=== PATIENT | male | born 1985 | race Caucasian/White ===

== ENCOUNTER 2016-07-02 11:09 | Inpatient (IN) | payer OTHER ==
[~2016-07-02] VITALS: Ht 170.2 cm; Wt 48.4 kg
[~2016-07-02 11:09] MED LIST: NORCO 5/3251 TABLET PO; SUBOXONE 8 M1 TABLET SL; TEGRETOL-XR,CA400 MG PO; ZANTAC150 MG PO; ZANTAC300 MG PO; ZOFRAN4 MG PO
[2016-07-02 12:09] LABS: HEMATOCRIT 57.7 % (38.0-50.0); MCH 28.7 PG (29.0-34.0); MCHC 33.3 G/DL (30.0-36.0); MCV 86.1 FL (86-99); MEAN PLAT.VOLUME 8.6 uM^3 (9.0-12.4); NRBC (%) 0.1 /100 WBC (0-0); PLATELET COUNT 280 K/uL (156-360); RBC DIS.WIDTH-CV 16.6 % (11.8-14.6); RBC DIS.WIDTH-SD 48.4 % (39-53); WHITE BLOOD COUNT 18.2 K/uL (4.1-10.2)
[2016-07-02 12:20] LABS: CHLORIDE 102 mEq/L (99-109); POTASSIUM 2.6 mEq/L (3.7-5.4); SODIUM 142 mEq/L (136-147)
[2016-07-02 12:22] LABS: GLUCOSE 155 mg/dL (70-99)
[2016-07-02 12:23] LABS: ANION GAP 18 MEQ/L (2-14)
[2016-07-02 12:24] LABS: TOTAL BILIRUBIN 0.6 mg/dL (0.0-1.0)
[2016-07-02 12:25] LABS: SERUM ETHYL ALCOHOL 152 mg/dL
[2016-07-02 12:26] LABS: ALKALINE PHOSPHATASE 101 IU/L (3-129); GFR ESTIMATE (CALCULATED) > 59 mL/min/
[2016-07-02 12:27] LABS: DIRECT BILIRUBIN 0.3 mg/dL (0.0-0.3); UREA NITROGEN (BUN) 3 mg/dL (9-23)
[2016-07-02 12:29] LABS: LIPASE 628 U/L (1.0-51.0)
[2016-07-02 13:26] LABS: MAGNESIUM 1.5 mg/dL (1.3-2.7)
[2016-07-02 14:31] VITALS: BP 184/98
[2016-07-02] MEDS ORDERED: GABAPENTIN300 MG PO (16:36)
[2016-07-02] MEDS ORDERED: VITAMIN B122500 MCG PO (18:31)
[2016-07-02 22:34] VITALS: BP 158/88
[2016-07-03 07:03] LABS: HEMATOCRIT 55.8 % (38.0-50.0); MCH 28.2 PG (29.0-34.0); MCHC 33.2 G/DL (30.0-36.0); MCV 85.1 FL (86-99); RBC DIS.WIDTH-CV 17.1 % (11.8-14.6); RBC DIS.WIDTH-SD 48.1 % (39-53); RED BLOOD COUNT 6.56 M/uL (4.00-5.50); WHITE BLOOD COUNT 17.6 K/uL (4.1-10.2)
[2016-07-03 07:07] LABS: ANION GAP 9 MEQ/L (2-14); CHLORIDE 98 MEQ/L (99-109); GFR ESTIMATE (CALCULATED) > 59 mL/min/; GLUCOSE 130 mg/dL (70-99); SAMPLE HEMOLYSIS CHECK 1; SAMPLE ICTERIC CHECK 0; SAMPLE LIPEMIA CHECK 0; UREA NITROGEN (BUN) 3 mg/dL (9-23)
[2016-07-03 07:13] LABS: POTASSIUM 3.8 MEQ/L (3.7-5.4); SODIUM 133 MEQ/L (136-147)
[2016-07-03 07:21] VITALS: BP 150/96
[2016-07-03 07:28] LABS: MEAN PLAT.VOLUME 8.6 uM^3 (9.0-12.4); PLAT.SUFFICIENCY ADEQUATE; PLATELET COUNT 170 K/uL (156-360)
[2016-07-03 11:15] VITALS: BP 174/108
[2016-07-03 16:09] VITALS: BP 144/76
[2016-07-03 19:08] VITALS: BP 169/89
[2016-07-03 23:15] VITALS: BP 144/67
[2016-07-04 07:24] VITALS: BP 161/101
[2016-07-04 12:48] VITALS: BP 160/95
[2016-07-04 16:18] VITALS: BP 167/92
[2016-07-04 17:35] VITALS: BP 148/88
[2016-07-04 19:28] VITALS: BP 155/93
[2016-07-04 22:58] VITALS: BP 164/95
[2016-07-05 02:00] VITALS: BP 156/85
[2016-07-05 03:45] VITALS: BP 134/85
[2016-07-05 06:26] LABS: EOSINOPHIL (%) 0 % (0-5); HEMATOCRIT 47.2 % (38.0-50.0); IMMATURE GRANULOCYTE (%) 0.6 % (0.0-0.7); IMMATURE GRANULOCYTE COUNT 0.1 K/uL; INSTRUMENT ABS NEUTROPHIL CT 10.4 K/uL; LYMPHOCYTE COUNT 1.2 K/uL (1.0-2.8); MCH 28.4 PG (29.0-34.0); MCHC 33.9 G/DL (30.0-36.0); MCV 83.8 FL (86-99); MONOCYTE (%) 8.9 % (3-12); MONOCYTE COUNT 1.2 K/uL (0-0.8); NEUTROPHIL COUNT 10.4 K/uL (1.8-6.4); RBC DIS.WIDTH-CV 15.5 % (11.8-14.6); RBC DIS.WIDTH-SD 46.5 % (39-53); RED BLOOD COUNT 5.63 M/uL (4.00-5.50); WHITE BLOOD COUNT 12.9 K/uL (4.1-10.2)
[2016-07-05 06:42] LABS: ALKALINE PHOSPHATASE 71 IU/L (3-129); ANION GAP 10 MEQ/L (2-14); CHLORIDE 97 MEQ/L (99-109); GFR ESTIMATE (CALCULATED) > 59 mL/min/; GLUCOSE 96 mg/dL (70-99); SAMPLE HEMOLYSIS CHECK 0; SAMPLE ICTERIC CHECK 0; SAMPLE LIPEMIA CHECK 0; SODIUM 134 MEQ/L (136-147); TOTAL BILIRUBIN 2.3 MG/DL (0.0-1.0); UREA NITROGEN (BUN) 6 mg/dL (9-23)
[2016-07-05 06:43] LABS: POTASSIUM 2.8 MEQ/L (3.7-5.4)
[2016-07-05 08:33] VITALS: BP 154/88
[2016-07-05 08:35] LABS: MEAN PLAT.VOLUME 9.2 uM^3 (9.0-12.4); PLAT.SUFFICIENCY DECREASED
[2016-07-05 08:36] LABS: PLATELET COUNT 110 K/uL (156-360)
[2016-07-05 10:51] VITALS: BP 156/99
[2016-07-05 17:05] VITALS: BP 140/91
[2016-07-05 23:06] VITALS: BP 166/92
[2016-07-06 07:16] LABS: EOSINOPHIL (%) 0.1 % (0-5); IMMATURE GRANULOCYTE (%) 0.5 % (0.0-0.7); IMMATURE GRANULOCYTE COUNT 0.1 K/uL; INSTRUMENT ABS NEUTROPHIL CT 10.1 K/uL; LYMPHOCYTE COUNT 1.8 K/uL (1.0-2.8); MCH 28.1 PG (29.0-34.0); MCHC 33.2 G/DL (30.0-36.0); MCV 84.7 FL (86-99); MONOCYTE (%) 10.1 % (3-12); MONOCYTE COUNT 1.3 K/uL (0-0.8); NEUTROPHIL (%) 75.6 % (45-76); NEUTROPHIL COUNT 10.1 K/uL (1.8-6.4); PLATELET COUNT 137 K/uL (156-360); RBC DIS.WIDTH-CV 15.6 % (11.8-14.6); RBC DIS.WIDTH-SD 47.7 % (39-53); WHITE BLOOD COUNT 13.3 K/uL (4.1-10.2)
[2016-07-06 07:44] LABS: ANION GAP 16 MEQ/L (2-14); CHLORIDE 99 MEQ/L (99-109); GFR ESTIMATE (CALCULATED) > 59 mL/min/; SAMPLE HEMOLYSIS CHECK 0; SAMPLE ICTERIC CHECK 0; SAMPLE LIPEMIA CHECK 0; SODIUM 134 MEQ/L (136-147); TOTAL BILIRUBIN 2.4 MG/DL (0.0-1.0); UREA NITROGEN (BUN) 7 mg/dL (9-23)
[2016-07-06 07:49] VITALS: BP 156/98
[2016-07-06 07:51] LABS: ALKALINE PHOSPHATASE 102 IU/L (3-129); GLUCOSE 63 mg/dL (70-99)
[2016-07-06 10:30] VITALS: BP 149/89
[2016-07-06 12:37] VITALS: BP 143/90
[2016-07-06 16:50] VITALS: BP 135/95
[2016-07-06 23:41] VITALS: BP 132/90
[2016-07-07 06:37] LABS: ALKALINE PHOSPHATASE 79 IU/L (3-129); ANION GAP 17 MEQ/L (2-14); CHLORIDE 103 MEQ/L (99-109); GFR ESTIMATE (CALCULATED) > 59 mL/min/; GLUCOSE 56 mg/dL (70-99); POTASSIUM 3.1 MEQ/L (3.7-5.4); SAMPLE HEMOLYSIS CHECK 0; SAMPLE ICTERIC CHECK 0; SAMPLE LIPEMIA CHECK 0; SODIUM 134 MEQ/L (136-147); TOTAL BILIRUBIN 1.7 MG/DL (0.0-1.0); UREA NITROGEN (BUN) 6 mg/dL (9-23)
[2016-07-07 07:40] VITALS: BP 131/75
[2016-07-07 18:02] VITALS: BP 143/80
[2016-07-07 23:05] VITALS: BP 140/84
[2016-07-08 07:32] LABS: ALKALINE PHOSPHATASE 99 IU/L (3-129); ANION GAP 11 MEQ/L (2-14); CHLORIDE 105 MEQ/L (99-109); GFR ESTIMATE (CALCULATED) > 59 mL/min/; POTASSIUM 2.8 MEQ/L (3.7-5.4); SAMPLE HEMOLYSIS CHECK 0; SAMPLE ICTERIC CHECK 0; SAMPLE LIPEMIA CHECK 0; SODIUM 136 MEQ/L (136-147); UREA NITROGEN (BUN) 2 mg/dL (9-23)
[2016-07-08 07:33] LABS: GLUCOSE 101 mg/dL (70-99); TOTAL BILIRUBIN 2.1 MG/DL (0.0-1.0)
[2016-07-08 10:03] VITALS: BP 117/74
[2016-07-08 12:00] VITALS: BP 137/84
[2016-07-08 17:24] VITALS: BP 145/89
[2016-07-08 23:24] VITALS: BP 132/73
[2016-07-09 06:42] LABS: ANION GAP 11 MEQ/L (2-14); CHLORIDE 104 MEQ/L (99-109); GFR ESTIMATE (CALCULATED) > 59 mL/min/; GLUCOSE 98 mg/dL (70-99); POTASSIUM 2.9 MEQ/L (3.7-5.4); SAMPLE HEMOLYSIS CHECK 0; SAMPLE ICTERIC CHECK 0; SAMPLE LIPEMIA CHECK 0; SODIUM 139 MEQ/L (136-147); UREA NITROGEN (BUN) 2 mg/dL (9-23)
[2016-07-09 07:50] VITALS: BP 137/86
[2016-07-09 08:34] LABS: LIPASE 159 U/L (1.0-51.0)
[2016-07-09 13:30] LABS: HEMATOCRIT 44.5 % (38.0-50.0); MCH 28.7 PG (29.0-34.0); MCHC 33.7 G/DL (30.0-36.0); MCV 85.1 FL (86-99); PLATELET COUNT 336 K/uL (156-360); RBC DIS.WIDTH-CV 15.2 % (11.8-14.6); RBC DIS.WIDTH-SD 47.4 % (39-53); RED BLOOD COUNT 5.23 M/uL (4.00-5.50); WHITE BLOOD COUNT 13.7 K/uL (4.1-10.2)
[2016-07-09 13:37] LABS: ANION GAP 7 MEQ/L (2-14); CHLORIDE 109 MEQ/L (99-109); POTASSIUM 3.2 MEQ/L (3.7-5.4); SAMPLE HEMOLYSIS CHECK 0; SAMPLE ICTERIC CHECK 0; SAMPLE LIPEMIA CHECK 0; SODIUM 141 MEQ/L (136-147)
[2016-07-09 13:43] LABS: GFR ESTIMATE (CALCULATED) > 59 mL/min/; GLUCOSE 135 mg/dL (70-99); UREA NITROGEN (BUN) 2 mg/dL (9-23)
[2016-07-09 23:12] VITALS: BP 131/80
[2016-07-10 04:30] VITALS: BP 127/80
[2016-07-10 06:15] LABS: HEMATOCRIT 45.8 % (38.0-50.0); MCH 28.6 PG (29.0-34.0); MCHC 34.1 G/DL (30.0-36.0); PLATELET COUNT 392 K/uL (156-360); RBC DIS.WIDTH-CV 15.2 % (11.8-14.6); RBC DIS.WIDTH-SD 46.5 % (39-53); RED BLOOD COUNT 5.45 M/uL (4.00-5.50)
[2016-07-10 06:46] LABS: ALKALINE PHOSPHATASE 107 IU/L (3-129); ANION GAP 8 MEQ/L (2-14); CHLORIDE 105 MEQ/L (99-109); GFR ESTIMATE (CALCULATED) > 59 mL/min/; GLUCOSE 103 mg/dL (70-99); POTASSIUM 2.9 MEQ/L (3.7-5.4); SAMPLE HEMOLYSIS CHECK 0; SAMPLE ICTERIC CHECK 0; SAMPLE LIPEMIA CHECK 0; SODIUM 142 MEQ/L (136-147); UREA NITROGEN (BUN) 2 mg/dL (9-23)
[2016-07-10 06:48] LABS: TOTAL BILIRUBIN 1.1 MG/DL (0.0-1.0)
[2016-07-10 08:42] VITALS: BP 144/90
[2016-07-10 12:05] VITALS: BP 128/82
[2016-07-10 16:16] VITALS: BP 139/83
[2016-07-10 17:36] LABS: ADD MIUA? NO; BILIRUBIN NEGATIVE; BLOOD NEGATIVE; COLOR YELLOW ((YELLOW)); GLUCOSE (STRIP) NEGATIVE; KETONES NEGATIVE; LEUKOCYTES NEGATIVE; NITRITE NEGATIVE; PROTEIN (STRIP) NEGATIVE; SPECIFIC GRAVITY 1.015 (1.000-1.030)
[2016-07-10 19:47] VITALS: BP 124/76
[2016-07-10 23:03] VITALS: BP 126/80
[2016-07-11 03:53] VITALS: BP 129/80
[2016-07-11 07:27] VITALS: BP 138/87
[2016-07-11 07:32] LABS: EOSINOPHIL (%) 0.8 % (0-5); EOSINOPHIL COUNT 0.1 K/uL (0-0.3); HEMATOCRIT 41.9 % (38.0-50.0); IMMATURE GRANULOCYTE (%) 0.7 % (0.0-0.7); IMMATURE GRANULOCYTE COUNT 0.1 K/uL; INSTRUMENT ABS NEUTROPHIL CT 9.6 K/uL; LYMPHOCYTE COUNT 1.4 K/uL (1.0-2.8); MCH 28.6 PG (29.0-34.0); MCHC 34.1 G/DL (30.0-36.0); MCV 83.8 FL (86-99); MEAN PLAT.VOLUME 9.1 uM^3 (9.0-12.4); MONOCYTE (%) 13.4 % (3-12); MONOCYTE COUNT 1.7 K/uL (0-0.8); NEUTROPHIL (%) 73.9 % (45-76); NEUTROPHIL COUNT 9.6 K/uL (1.8-6.4); PLATELET COUNT 450 K/uL (156-360); RBC DIS.WIDTH-CV 15.4 % (11.8-14.6); RBC DIS.WIDTH-SD 46.6 % (39-53)
[2016-07-11 08:09] LABS: ALKALINE PHOSPHATASE 113 IU/L (3-129); ANION GAP 8 MEQ/L (2-14); CHLORIDE 104 MEQ/L (99-109); GFR ESTIMATE (CALCULATED) > 59 mL/min/; GLUCOSE 113 mg/dL (70-99); MAGNESIUM 1.4 mg/dl (1.3-2.7); POTASSIUM 3.2 MEQ/L (3.7-5.4); SAMPLE HEMOLYSIS CHECK 0; SAMPLE ICTERIC CHECK 0; SAMPLE LIPEMIA CHECK 0; SODIUM 139 MEQ/L (136-147); TOTAL BILIRUBIN 1.1 MG/DL (0.0-1.0)
[2016-07-11 08:10] LABS: UREA NITROGEN (BUN) < 2 mg/dL (9-23)
[2016-07-11 11:04] VITALS: BP 130/83
[2016-07-11 15:50] VITALS: BP 139/88
[2016-07-11 22:52] VITALS: BP 136/95
[2016-07-12 06:26] LABS: EOSINOPHIL (%) 1.4 % (0-5); EOSINOPHIL COUNT 0.2 K/uL (0-0.3); IMMATURE GRANULOCYTE COUNT 0.1 K/uL; INSTRUMENT ABS NEUTROPHIL CT 7.3 K/uL; LYMPHOCYTE COUNT 1.7 K/uL (1.0-2.8); MCH 28.8 PG (29.0-34.0); MCV 84.8 FL (86-99); MONOCYTE (%) 11.9 % (3-12); MONOCYTE COUNT 1.3 K/uL (0-0.8); NEUTROPHIL (%) 68.9 % (45-76); NEUTROPHIL COUNT 7.3 K/uL (1.8-6.4); PLATELET COUNT 489 K/uL (156-360); RBC DIS.WIDTH-CV 15.3 % (11.8-14.6); RBC DIS.WIDTH-SD 47.3 % (39-53); RED BLOOD COUNT 5.07 M/uL (4.00-5.50); WHITE BLOOD COUNT 10.6 K/uL (4.1-10.2)
[2016-07-12 06:59] VITALS: BP 141/94
[2016-07-12 07:08] LABS: ALKALINE PHOSPHATASE 105 IU/L (3-129); ANION GAP 9 MEQ/L (2-14); CHLORIDE 104 MEQ/L (99-109); GFR ESTIMATE (CALCULATED) > 59 mL/min/; GLUCOSE 117 mg/dL (70-99); MAGNESIUM 1.5 mg/dl (1.3-2.7); POTASSIUM 3.6 MEQ/L (3.7-5.4); SAMPLE HEMOLYSIS CHECK 0; SAMPLE ICTERIC CHECK 0; SAMPLE LIPEMIA CHECK 0; SODIUM 143 MEQ/L (136-147); UREA NITROGEN (BUN) 2 mg/dL (9-23)
[2016-07-12 07:11] LABS: TOTAL BILIRUBIN 0.7 MG/DL (0.0-1.0)
[2016-07-12 11:01] VITALS: BP 142/101
[2016-07-12 15:47] VITALS: BP 157/93
[2016-07-12 18:53] VITALS: BP 154/96
[2016-07-12 22:34] VITALS: BP 136/81
[2016-07-13 03:37] VITALS: BP 135/91
[2016-07-13 07:07] VITALS: BP 153/96
[2016-07-13 08:36] LABS: EOSINOPHIL COUNT 0.1 K/uL (0-0.3); HEMATOCRIT 44.4 % (38.0-50.0); IMMATURE GRANULOCYTE (%) 1.4 % (0.0-0.7); IMMATURE GRANULOCYTE COUNT 0.2 K/uL; INSTRUMENT ABS NEUTROPHIL CT 7.5 K/uL; LYMPHOCYTE COUNT 1.6 K/uL (1.0-2.8); MCH 28.5 PG (29.0-34.0); MCHC 33.3 G/DL (30.0-36.0); MCV 85.4 FL (86-99); MEAN PLAT.VOLUME 8.8 uM^3 (9.0-12.4); MONOCYTE (%) 10.4 % (3-12); MONOCYTE COUNT 1.1 K/uL (0-0.8); NEUTROPHIL (%) 71.2 % (45-76); NEUTROPHIL COUNT 7.5 K/uL (1.8-6.4); PLATELET COUNT 535 K/uL (156-360); RBC DIS.WIDTH-CV 15.3 % (11.8-14.6); RBC DIS.WIDTH-SD 47.8 % (39-53); WHITE BLOOD COUNT 10.5 K/uL (4.1-10.2)
[2016-07-13 08:54] LABS: ANION GAP 9 MEQ/L (2-14); CHLORIDE 102 MEQ/L (99-109); MAGNESIUM 1.6 mg/dl (1.3-2.7); POTASSIUM 4.1 MEQ/L (3.7-5.4); SAMPLE HEMOLYSIS CHECK 0; SAMPLE ICTERIC CHECK 0; SAMPLE LIPEMIA CHECK 0; SODIUM 139 MEQ/L (136-147)
[2016-07-13 09:13] LABS: GFR ESTIMATE (CALCULATED) > 59 mL/min/; GLUCOSE 121 mg/dL (70-99)
[2016-07-13 09:25] LABS: UREA NITROGEN (BUN) < 2 mg/dL (9-23)
[2016-07-13 11:00] VITALS: BP 162/103
[2016-07-13 16:51] VITALS: BP 134/83
[2016-07-13 22:52] VITALS: BP 114/70
[2016-07-14 07:01] VITALS: BP 121/88
[2016-07-14] MEDS ORDERED: OXYCODONE-APAP1 EACH PO (11:26)
[2016-07-14] MEDS ORDERED: PEPCID20 MG PO (11:26)
== END 2016-07-14 13:47 | disposition home or self-care (01) | DRG 438 ==
LOC: EME 11:09 → EDOF 12:44 → 5EAST 12:44
PROVIDERS: Emergency Medicine; Internal Medicine; Nurse Practitioner Adult Health
DX: K85.21 Alcohol induced acute pancreatitis with uninfected necrosis (principal); J18.9 Pneumonia, unspecified organism; J91.8 Pleural effusion in other conditions classified elsewhere; E87.6 Hypokalemia; F11.20 Opioid dependence, uncomplicated; G62.9 Polyneuropathy, unspecified; F17.210 Nicotine dependence, cigarettes, uncomplicated; R79.89 Other specified abnormal findings of blood chemistry; K22.70 Barrett's esophagus without dysplasia; E87.1 Hypo-osmolality and hyponatremia; F10.188 Alcohol abuse with other alcohol-induced disorder
CPT/HCPCS: 74177; 76705; 80048; 80048 91; 80053; 80076; 81003; 83690; 83735; 85025; 85027; 87040; 99281; 99285; G0480; J0692; J1170; J1650; J1885; J2060; J2185; J2270; J2405; J2765; J3010; J3411; J3475; J3480; J7030; J7050; S0028

== ENCOUNTER 2016-07-20 13:39 | Emergency (ER) | payer OTHER ==
[~2016-07-20] VITALS: Ht 170.2 cm; Wt 59.7 kg
[~2016-07-20 13:39] MED LIST changes: +GABAPENTIN300 MG PO; +OXYCODONE-APAP1 EACH PO; +PEPCID20 MG PO; +VITAMIN B122500 MCG PO
[2016-07-20] MEDS ORDERED: AMLODIPINE BESY10 MG PO (14:00)
[2016-07-20 14:49] LABS: EOSINOPHIL (%) 0.7 % (0-5); EOSINOPHIL COUNT 0.1 K/uL (0-0.3); HEMATOCRIT 46.2 % (38.0-50.0); IMMATURE GRANULOCYTE (%) 0.4 % (0.0-0.7); IMMATURE GRANULOCYTE COUNT 0.1 K/uL; INSTRUMENT ABS NEUTROPHIL CT 7.7 K/uL; LYMPHOCYTE COUNT 2.6 K/uL (1.0-2.8); MCH 28.8 PG (29.0-34.0); MCHC 32.7 G/DL (30.0-36.0); MEAN PLAT.VOLUME 8.1 uM^3 (9.0-12.4); MONOCYTE (%) 8.8 % (3-12); NEUTROPHIL (%) 67.1 % (45-76); NEUTROPHIL COUNT 7.7 K/uL (1.8-6.4); PLATELET COUNT 573 K/uL (156-360); RBC DIS.WIDTH-CV 15.4 % (11.8-14.6); RBC DIS.WIDTH-SD 49.5 % (39-53); RED BLOOD COUNT 5.25 M/uL (4.00-5.50); WHITE BLOOD COUNT 11.4 K/uL (4.1-10.2)
[2016-07-20 14:57] LABS: CHLORIDE 99 mEq/L (99-109); POTASSIUM 3.7 mEq/L (3.7-5.4); SODIUM 137 mEq/L (136-147)
[2016-07-20 14:59] LABS: GLUCOSE 87 mg/dL (70-99)
[2016-07-20 15:01] LABS: ANION GAP 10 MEQ/L (2-14); TOTAL BILIRUBIN 0.7 mg/dL (0.0-1.0)
[2016-07-20 15:02] LABS: SERUM ETHYL ALCOHOL < 10 mg/dL
[2016-07-20 15:03] LABS: ALKALINE PHOSPHATASE 90 IU/L (3-129); GFR ESTIMATE (CALCULATED) > 59 mL/min/
[2016-07-20 15:04] LABS: UREA NITROGEN (BUN) 2 mg/dL (9-23)
[2016-07-20 15:06] LABS: LIPASE 126 U/L (1.0-51.0)
[2016-07-20 15:09] LABS: TROP-I INTERPRETATION NEGATIVE; TROPONIN-I < 0.01 ng/mL (0.0-0.30)
[2016-07-20 15:32] LABS: ADD MIUA? NO; BILIRUBIN NEGATIVE; BLOOD NEGATIVE; COLOR STRAW ((YELLOW)); GLUCOSE (STRIP) NEGATIVE; KETONES NEGATIVE; LEUKOCYTES NEGATIVE; NITRITE NEGATIVE; PROTEIN (STRIP) NEGATIVE; SPECIFIC GRAVITY 1.002 (1.000-1.030); UCUL ADDED? NO; UROBILINOGEN 0.2 MG/DL (0.2-1.0)
[2016-07-20 19:38] VITALS: BP 117/65
== END 2016-07-20 19:41 | disposition home or self-care (01) ==
LOC: EME 13:39
PROVIDERS: Emergency Medicine
DX: K86.1 Other chronic pancreatitis (principal); K86.3 Pseudocyst of pancreas; F17.200 Nicotine dependence, unspecified, uncomplicated; I10 Essential (primary) hypertension; G62.9 Polyneuropathy, unspecified
CPT/HCPCS: 74177; 80053; 81003; 83690; 84484; 85025; 93005; 99281; 99284; G0480; J7030

== ENCOUNTER 2016-12-17 23:57 | Observation (INO) | payer OTHER ==
[~2016-12-17] VITALS: Ht 175.3 cm; Wt 62.3 kg
[~2016-12-17 23:57] MED LIST changes: +AMLODIPINE BESY10 MG PO
[2016-12-18 05:24] LABS: CHLORIDE 101 mEq/L (99-109); SODIUM 138 mEq/L (136-147)
[2016-12-18 05:27] LABS: GLUCOSE 105 mg/dL (70-99)
[2016-12-18 05:28] LABS: ANION GAP 8 MEQ/L (2-14); TOTAL BILIRUBIN 0.3 mg/dL (0.0-1.0)
[2016-12-18 05:30] LABS: ALKALINE PHOSPHATASE 68 IU/L (3-129); GFR ESTIMATE (CALCULATED) > 59 mL/min/; SERUM ETHYL ALCOHOL < 10 mg/dL
[2016-12-18 05:31] LABS: UREA NITROGEN (BUN) 5 mg/dL (9-23)
[2016-12-18 05:34] LABS: LIPASE 3 U/L (1.0-51.0)
[2016-12-18 05:40] LABS: EOSINOPHIL (%) 8.2 % (0-5); EOSINOPHIL COUNT 0.6 K/uL (0-0.3); IMMATURE GRANULOCYTE (%) 0.3 % (0.0-0.7); INSTRUMENT ABS NEUTROPHIL CT 2.8 K/uL; LYMPHOCYTE COUNT 2.9 K/uL (1.0-2.8); MCH 29.9 PG (29.0-34.0); MCHC 33.9 G/DL (30.0-36.0); MEAN PLAT.VOLUME 8.7 uM^3 (9.0-12.4); MONOCYTE (%) 9.1 % (3-12); MONOCYTE COUNT 0.6 K/uL (0-0.8); NEUTROPHIL (%) 40.2 % (45-76); NEUTROPHIL COUNT 2.8 K/uL (1.8-6.4); PLATELET COUNT 286 K/uL (156-360); RBC DIS.WIDTH-CV 12.6 % (11.8-14.6); RBC DIS.WIDTH-SD 40.3 % (39-53); RED BLOOD COUNT 3.75 M/uL (4.00-5.50)
[2016-12-18 06:23] LABS: ADD MIUA? NO; BILIRUBIN NEGATIVE; BLOOD NEGATIVE; COLOR YELLOW ((YELLOW)); GLUCOSE (STRIP) NEGATIVE; KETONES NEGATIVE; LEUKOCYTES NEGATIVE; NITRITE NEGATIVE; PROTEIN (STRIP) NEGATIVE; UCUL ADDED? NO; UROBILINOGEN 0.2 MG/DL (0.2-1.0)
[2016-12-18] MEDS ORDERED: GABAPENTIN300 MG PO (08:56)
[2016-12-18] MEDS ORDERED: BUPRENORPHINE HC8 MG SL (08:58)
[2016-12-18] MEDS ORDERED: PROTONIX40 MG PO (08:58)
[2016-12-18] MEDS ORDERED: MEN'S MULTI-VI1 EACH PO (08:59)
[2016-12-18] MEDS ORDERED: VISINE TEARS DR15 ML BOTH EYES (09:00)
[2016-12-18 13:51] VITALS: BP 111/63
[2016-12-18 19:29] VITALS: BP 107/59
[2016-12-18 23:55] VITALS: BP 106/56
[2016-12-19 04:04] VITALS: BP 98/59
[2016-12-19 07:15] VITALS: BP 135/79
[2016-12-19 10:58] LABS: HBSG INDEX 0.17; HPCA INDEX 0.07
[2016-12-19] MEDS ORDERED: KEFLEX500 MG PO (12:39)
[2016-12-19] MEDS ORDERED: MOTRIN IB200 MG PO (12:40)
== END 2016-12-19 16:30 | disposition home or self-care (01) ==
LOC: EME 23:57 → EDOF 12-18 08:40 → 5WEST 12-18 08:40 → EDOF 12-18 08:40 → ENRESERV 12-18 08:41 → CANRESERV 12-18 08:41 → ENRESERV 12-18 09:00 → 5WEST 12-18 13:13
PROVIDERS: Emergency Medicine; Internal Medicine Infectious Disease
DX: L03.116 Cellulitis of left lower limb (principal); L03.115 Cellulitis of right lower limb; M79.89 Other specified soft tissue disorders; M25.471 Effusion, right ankle; D72.1 Eosinophilia; D64.9 Anemia, unspecified; F11.21 Opioid dependence, in remission; F10.21 Alcohol dependence, in remission; F17.200 Nicotine dependence, unspecified, uncomplicated; Z86.19 Personal history of other infectious and parasitic diseases; Z88.0 Allergy status to penicillin; Z88.5 Allergy status to narcotic agent
CPT/HCPCS: 70450; 74176; 80053; 81003; 82140; 83690; 85025; 86803; 87040; 87340; 93970; 99281; 99285; G0378; G0480; J0690; J1200; J1650; J1885; Q0177